=== PATIENT | male | born 1940 | race Caucasian/White ===

== ENCOUNTER 2017-02-14 06:45 | Inpatient (IN) | payer MEDICARE, OTHER ==
[2017-02-01 16:31] LABS: BASOPHILS 0.2 %; BASOPHILS ABSOLUTE 0.02 10/3/uL (0.0-0.16); EOSINOPHILS 0.8 %; HEMATOCRIT 41.5 % (40.0-51.0); HEMOGLOBIN 13.6 g/dL (13.6-17.8); IMMATURE GRANULOCYTES 0.9 %; IMMATURE GRANULOCYTES ABSOLUTE 0.11 10/3/uL (0.0-0.11); LYMPHOCYTES 19.9 %; LYMPHOCYTES ABSOLUTE 2.38 10/3/uL (0.67-4.30); MEAN CORPUS HGB CONC 32.8 g/dL (32.0-36.0); MEAN CORPUSCULAR HEMOGLOB 26.6 pg (26.0-34.0); MEAN CORPUSCULAR VOLUME 81.1 fL (80-100); MEAN PLATELET VOLUME 9.1 fL (9.2-13.0); MONOCYTES 6.7 %; NEUTROPHILS 71.5 %; NEUTROPHILS ABSOLUTE 8.55 10/3/uL (2.02-8.40); PLATELET COUNT 269 10/3/uL (150-400); PROTIME (NOT ORD) 13.3 SEC (12.0-14.5); RBC DISTRIBUTION WIDTH 17.1 % (12.0-16.0); RED CELL COUNT 5.12 10/6/uL (4.7-6.1)
[2017-02-01 16:32] LABS: MANUAL DIFF NO %
[2017-02-01 16:41] LABS: ALBUMIN 3.3 G/DL (3.5-5.0); ALKALINE PHOSPHATASE 132 U/L (45-117); BUN (BLOOD UREA NITROGEN) 9 MG/DL (6-23); CALCIUM, SERUM 8.6 MG/DL (8.5-10.4); CHLORIDE, SERUM 97 MMOL/L (96-112); CO2 (CARBON DIOXIDE) 29 MMOL/L (24-34); CREATININE 1.01 MG/DL (0.70-1.30); GFR AFRICAN AMERICAN 83 ML/MIN (>=60); GFR NON AFRICAN AMERICAN 72 ML/MIN (>=60); GLOBULIN 3.2 G/DL (2.5-4.1); GLUCOSE, SERUM 97 MG/DL (60-99); POTASSIUM, SERUM 3.9 MMOL/L (3.5-5.3); SGPT(ALT) 20 U/L (5-65); SODIUM, SERUM 136 MMOL/L (135-148); TOTAL BILIRUBIN 0.4 MG/DL (0-1.2); TOTAL PROTEIN 6.5 G/DL (6.0-8.5)
[2017-02-01 16:43] LABS: SGOT(AST) 14 U/L (5-40)
[2017-02-01 18:07] LABS: ASCORBIC ACID (UR NOT ORDER) NEG (NEG); BILIRUBIN, URINE NEGATIVE (NEG); KETONE, URINE NEGATIVE (NEG); LEUKOCYTE ESTERASE(NOT OR NEG (NEG); WBC (NOT ORDERED) (RFLEX) < 1 (0-5)
--- NOTE | ~2017-02-14 | DS ---
Discharge Summary [facility] [address] [place]. [address] NAME: GABRIELLE GARCIA : 42 STATUS : DIS IN PAT#: [id number] AGE: 77 ADM/REG DATE : 02/14/17 MR#: [id number] REPORT SERV DATE: 02/28/17 DICTATED BY: MARK BARAJAS DATE: 02/27/17 REPORT STATUS : Draft TRANSCRIBED BY: JOSEY DATE: 02/27/17 Data Collection from hospitalization DISCHARGE DIAGNOSES: 1. Severe right knee degenerative joint disease. 2. Hypertension. 3. Coronary artery disease. 4. Hyperlipidemia. 5. History of myocardial infarction. 6. Angina. 7. Obesity. CONSULTATIONS: None. PROCEDURES PERFORMED: Right posterior stabilized total knee replacement, cemented, 02/14/2017. PATHOLOGY: DISCHARGE MEDICATIONS: Aspirin 81 mg daily, Lipitor 40 mg daily, glucosamine as instructed, hydrochlorothiazide 12.5 mg daily, Imdur 15 mg daily, Cozaar 50 mg at bedtime, methscopolamine 2.5 mg before meals and at bedtime, Lopressor 50 mg twice a day, nitroglycerin 0.4 mg sublingually as needed, Prilosec 20 mg every morning, Zofran one tablet every 6 hours as needed, Percocet 5/325 one to two tablets every 4 hours as needed, Flomax 0.4 mg daily, vitamin E as instructed, and Coumadin 1 tablet daily. CONDITION AT DISCHARGE: Stable. DISPOSITION: The patient was discharged home on a regular diet with activities as instructed. He would follow up with me two weeks following discharge. He would follow up at [facility] as an outpatient for physical therapy, 02/19/2017, and follow up at [facility] as instructed. HOSPITAL COURSE: This is a 77-year-old man, who complained of moderate to severe right knee pain for about two years. The patient has severe right knee degenerative joint disease. Treatment options were discussed and it was elected to proceed with surgical intervention. He was admitted to the hospital at this time for further evaluation and treatment. Upon admission, he was taken to the operating room, where he underwent the above-mentioned procedure. He tolerated this well and there were no complications. On postop day #1, he was up sitting in a bedside chair. He did have some nausea. KELLY hose were in place. Blood pressure was controlled. Flomax was continued for his benign prostatic hypertrophy. He was on methscopolamine for his allergy. Protonix was continued as well as Lipitor and metoprolol. On postop day #2, he continued to progress. KELLY hose were in place. Discharge planning was performed. On 02/17/2017, the patient said he does not have a bowel movement except once every five to six days. Discharge instructions were given. Due to his improved and stable condition, he was discharged home with the above-stated instructions. Discharge Summary [facility] [id number] [place]. [address] NAME: GABRIELLE GARCIA : 42 STATUS : DIS IN [facility]#: [id number] AGE: 77 ADM/REG DATE : 02/14/17 MR#: [id number] REPORT SERV DATE: 02/28/17 DICTATED BY: MARK BARAJAS DATE: 02/27/17 REPORT STATUS : Draft TRANSCRIBED BY: JOSEY DATE: 02/27/17 Information collected by: Karmen Manzanares I submit the above information as my discharge summary. BRUNO/JOSEY Mikayla Barajas M.D. / [id number] CC: Raffy Hatch
--- NOTE | ~2017-02-14 | OP ---
Record Of Operation [facility] [address] [place]. [address] NAME: GABRIELLE GARCIA : 42 STATUS : ADM IN PAT#: [id number] AGE: 77 ADM/REG DATE : 02/14/17 MR#: [id number] REPORT SERV DATE: 02/15/17 DICTATED BY: MARK BARAJAS DATE: 02/15/17 REPORT STATUS : Draft TRANSCRIBED BY: MODL DATE: 02/15/17 DATE OF PROCEDURE: 02/14/2017 PREOPERATIVE DIAGNOSIS: Severe right knee degenerative joint disease. POSTOPERATIVE DIAGNOSIS: Severe right knee degenerative joint disease. OPERATION: Right posterior stabilized total knee replacement, cemented. SIDE: Right. SIZE: See chart. ANESTHESIA: See chart. ESTIMATED BLOOD LOSS: About 10 mL. TOURNIQUET TIME: Approximately 1 hour and 10 minutes. COMPLICATIONS: None. SPECIMENS: Articular surfaces. PROCEDURE: The patient was appropriately identified and marked. The operative side agreed with the consent form and it was checked by all members of the surgical team. The patient was taken to the operating room and anesthesia was induced per the anesthesiologist. The patient was carefully transferred to the operating table without incident. The patient received appropriate prophylactic antibiotics and a Hassan catheter was placed in the standard sterile technique. The patient was then carefully positioned, padded, prepped and draped in the normal sterile fashion. The operative leg had been appropriately identified and checked by all members of the operating team against the consent form and found to be the correct limb. The patient's lower extremity was then exsanguinated with an Seth wrap and a tourniquet was inflated to 350 mm/Hg. Sharp dissection was carried out through a straight midline longitudinal incision and electrocautery through the fat. Sharp quad splitting approach was carried out between about the medial 10 percent of the tendon and the lateral 90 percent of the tendon and down around the medial aspect of the patella and then 1 cm medial to the tibial tubercle. The patella was carefully everted and the posterior fat pad was excised and gentle MCL elevation was carried out off the proximal medial tibia subperiosteally. IM guide was placed in the distal femur after using the appropriate drill. The distal femoral cutting guide was held with 2 pins and the distal cut made. Meniscal fragments and the ACL and the PCL were excised with electrocautery, carefully staying anterior to the posterior fat pad. The proximal tibial alignment guide was set appropriately and the proximal tibial cut made. Spacer block verified full extension with excellent mediolateral balance. Sizing guide was used to place 2 drill holes in the distal femur and the four-in-one cutting block was then placed, impacted and checked Record Of Operation [facility] [address] [place]. [address] NAME: GABRIELLE GARCIA : 42 STATUS : ADM IN PAT#: [id number] AGE: 77 ADM/REG DATE : 02/14/17 MR#: [id number] REPORT SERV DATE: 02/15/17 DICTATED BY: MARK BARJAAS DATE: 02/15/17 REPORT STATUS : Draft TRANSCRIBED BY: MODL DATE: 02/15/17 to be sure it would not notch with an teresa wing and it was held with 2 pins. The anterior cut, posterior cut, anterior chamfer and posterior chamfer cuts were made. The pins were removed and the block was removed. A posterior release was carried out with a curved 3/4 inch osteotome staying right on the bone posteriorly. The box-cut guide was then placed, impacted and held with 2 pins and a reciprocating saw was used to cut out the box. With the trial components in place, there was excellent medial/lateral balance. The patella was then measured with a caliper, cut first with an oscillating saw and then reamed with a patella reamer. With the trial patella in place, there was excellent patellar tracking. Rotation was marked on the tibia and the tibia prepared with a drill and stamp chisel. All surfaces were then copiously irrigated with pulsatile lavage, carefully dried and then vacuum-mixed cement was pressurized with a cement gun in a doughy phase. The tibial component was placed, impacted and excess cement was removed. The cement was then pressurized in the femur and placed on the posterior runners of the femoral component, which was placed, impacted and excess cement removed and the knee was brought out into extension on a trial spacer. The cement was then pressurized in the patella. Patellar component was then placed, clamped and excess cement was removed. Once all cement was hardened, the knee was taken through range of motion. Further extruded cement was removed with a small osteotome. Then based on the trial inserts, we decided on the actual insert, which was placed in the standard fashion and held with a locking mechanism. The knee was then copiously irrigated and then closed in a layered fashion over a medium Hemovac drain superolaterally with interrupted #1 in the deep fascia, 2-0 subcutaneous and benito in the skin. The wounds were dressed sterilely and the tourniquet was deflated. The patient was then awakened and taken to the postanesthesia care unit without incident. All counts were correct at the end of the case. APRILB/JOSEY Mikayla Barajas M.D. / [id number] CC: Raffy Hatch THOMAS S
[~2017-02-14 06:45] MED LIST: ASAB PO; COZ50 PO; FLOMAX4 PO; GLUCOSAMINEPO; HYDROCHLOROT12.5 MG PO; IMDUR30 PO; LIPITOR40 PO; LOP50 PO; METHSCOPOLAM2.5 MG PO; NTG150 SL; PRILO PO; VITE
[2017-02-15 04:54] LABS: HEMATOCRIT 31.8 % (40.0-51.0); HEMOGLOBIN 10.7 g/dL (13.6-17.8)
[2017-02-15 05:00] LABS: INTERNATIONAL NORMAL RATI 1.2 UNITS (-); PROTIME (NOT ORD) 14.8 SEC (12.0-14.5)
[2017-02-15 05:08] LABS: CALCIUM, SERUM 8.5 MG/DL (8.5-10.4); CHLORIDE, SERUM 98 MMOL/L (96-112); CO2 (CARBON DIOXIDE) 28 MMOL/L (24-34); CREATININE 0.84 MG/DL (0.70-1.30); GFR AFRICAN AMERICAN 99 ML/MIN (>=60); GFR NON AFRICAN AMERICAN 85 ML/MIN (>=60); POTASSIUM, SERUM 3.8 MMOL/L (3.5-5.3); SODIUM, SERUM 134 MMOL/L (135-148)
[2017-02-15 05:10] LABS: BUN (BLOOD UREA NITROGEN) 14 MG/DL (6-23); GLUCOSE, SERUM 119 MG/DL (60-99)
[2017-02-16 05:07] LABS: INTERNATIONAL NORMAL RATI 1.8 UNITS (-)
[2017-02-16 05:08] LABS: PROTIME (NOT ORD) 20.4 SEC (12.0-14.5)
[2017-02-16 05:11] LABS: HEMATOCRIT 32.1 % (40.0-51.0); HEMOGLOBIN 10.9 g/dL (13.6-17.8)
[2017-02-17 05:46] LABS: HEMATOCRIT 29.9 % (40.0-51.0); HEMOGLOBIN 10.1 g/dL (13.6-17.8)
[2017-02-17 05:49] LABS: INTERNATIONAL NORMAL RATI 2.3 UNITS (-)
[2017-02-17 05:53] LABS: PROTIME (NOT ORD) 25.3 SEC (12.0-14.5)
[2017-02-17] MEDS ORDERED: ZOFRAN4 PO (08:29)
[2017-02-17] MEDS ORDERED: PCET PO (08:29)
[2017-02-17] MEDS ORDERED: C25 PO (08:30)
== END 2017-02-17 11:33 | disposition home or self-care (01) | DRG 470 ==
LOC: SDC/OF 06:45 → PACU 11:53 → 3JRC 12:42
PROVIDERS: Specialist
PROC: 0SRC0J9 Replacement of Right Knee Joint with Synthetic Substitute, Cemented, Open Approach (ICD-10-PCS; 2017-02-14)
PROC: 3E0T3CZ (ICD-10-PCS; principal; 2017-02-14 09:15)
DX: M17.11 Unilateral primary osteoarthritis, right knee (principal); M06.9 Rheumatoid arthritis, unspecified; I48.2 Chronic atrial fibrillation; I10 Essential (primary) hypertension; Z96.643 Presence of artificial hip joint, bilateral; Z96.652 Presence of left artificial knee joint; Z79.82 Long term (current) use of aspirin; Z79.899 Other long term (current) drug therapy; Z90.49 Acquired absence of other specified parts of digestive tract; Z98.890 Other specified postprocedural states; E78.5 Hyperlipidemia, unspecified; K21.9 Gastro-esophageal reflux disease without esophagitis; N40.0 Benign prostatic hyperplasia without lower urinary tract symptoms
CPT/HCPCS: 36415; 71020-PO; 80048; 80053; 81001; 85014; 85018; 85025; 85610; 87641; 88305; 88311; 93005; 97110-GP; 97116-GP; 97150-GP; 97161-GP; 97165-GO; A9270-GY; C1776; G8978-CK-GP; G8979-CH-GP; J0690; J1885; J2250; J2270; J2274; J2405; J2795; J3010